=== PATIENT | female | born 1955 | race Caucasian/White ===

== ENCOUNTER 2021-08-07 08:32 | Outpatient (REF) | payer OTHER, SELFPAY ==
--- NOTE | ~2021-08-07 | US_ITS ---
EXAMINATION: ULTRASOUND EXTREMITY NONVASCULAR CLINICAL INFORMATION: Edema left antecubital fossa. Question bursitis. COMPARISON: None TECHNIQUE: Doppler color and grayscale evaluation of the left antecubital fossa using a linear transducer FINDINGS: No fluid collection or soft tissue mass is seen. The antecubital vein is patent. US/US extremity nonvascular IMPRESSION: Unremarkable exam.
== END 2021-08-07 08:33 | disposition home or self-care (01) ==
LOC: HO.HMGCX 08:32
PROVIDERS: Visit Provider Nurse Practitioner Gerontology
DX: R22.32 Localized swelling, mass and lump, left upper limb (principal)
CPT/HCPCS: 76882

== ENCOUNTER 2022-06-29 10:14 | Emergency (ER) | payer OTHER, SELFPAY ==
--- NOTE | ~2022-06-29 | CT_ITS ---
EXAMINATION: HEAD CT AND CERVICAL SPINE CT WITHOUT CONTRAST CLINICAL INFORMATION: Headache. Neck pain radiating to left side. COMPARISON: Previous head CT, most recent March 2019. TECHNIQUE: Axial images through the head and cervical spine without contrast. Sagittal and coronal reconstructions on the technologist workstation were performed. Patient dose: 1006 mGy-cm. FINDINGS: HEAD: There is no evidence of an extra-axial collection. There is no evidence of intra-axial or extra-axial hemorrhage. The ventricles and extra-axial CSF spaces are appropriate. Guerrero-white matter differentiation is normal. No mass, mass effect or infarct is seen. Review at bone windows is normal. No skull fracture. Visualized paranasal sinuses, mastoid air cells and middle ears are clear. CERVICAL SPINE: Bone alignment is normal. No fracture or dislocation is seen. There is degenerative spondylosis at C4-C5, C5-C6 and C6-C7 with large bulky bridging vertebral body bony osteophytes. There is degenerative disc disease at C5-C6 and C6-C7. There is bilateral multilevel facet arthritis. There are degenerative changes at the C1 dens articulation. Prevertebral soft tissues are normal. Visualized lung apices are clear. At C2-C3, no disc herniation, protrusion or bulge. Spinal canal and neural foramen are patent. At C3-C4, there is mild disc bony osteophyte complex and mild left lateral recess and neural foraminal narrowing from disc osteophyte complex and facet arthritis. At C3-C4, there is no disc herniation, protrusion or bulge. Spinal canal and neural foramen are patent. At C4-C5, there is no disc herniation, protrusion or bulge. Severe right-sided facet arthritis and right-sided lateral recess and neural foraminal narrowing from facet arthritis. At C5-C6, there is mild left paracentral disc bony osteophyte complex, left greater than right. There is mild left-sided neural foraminal narrowing from disc osteophyte complex. At C6-C7, there is disc bony osteophyte complex, moderate secondary spinal stenosis, bilateral lateral recess and neural foraminal narrowing. CT/CT cervical spine wo IV con IMPRESSION: HEAD CT: Unremarkable exam. CERVICAL SPINE CT: No fracture or dislocation. Multilevel degenerative changes, greatest at C5-C6.
[2022-06-29 11:09] VITALS: BP 143/79; PULSE 55; RESP 18; TEMP 36.8; O2SAT 98; BMI 26.6
--- NOTE | 2022-06-29 11:59 | ED.GENADULT ---
HPI - General Adult General Chief complaint: General Medical Stated complaint: pain in R side body Time Seen by Provider: 06/29/22 11:56 History of Present Illness HPI narrative: Patient complains of left neck pain left arm pain, intermittent tingling into the left hand but no weakness of the left arm or the left hand as well as some pain that sometimes shoots down her left leg She also complains of an occasional headache which centers around her left eye with no vision loss, no other associated symptoms, she has no headache now Related Data Allergies Allergy/AdvReac Type Severity Reaction Status Date / Time No Known Allergies Allergy Unverified 07/03/20 17:16 [No Known Allergies*] Review of Systems Review of Systems: Negatives are no fever no chills no dizziness no weakness no fainting no feeling faint no nausea no vomiting no confusion no seizures no numbness no weakness no tingling no changes to bowel or bladder no chest pain no abdominal pain no dysuria Yes all other systems are reviewed and are negative PMFSH Past Medical History Source: nursing notes reviewed Social History Social History Advance Directives: No Advance Directives Information Provided: No Physical Exam ED Vital Signs: Vital Signs - 24 hr 06/29/22 11:09 Temperature 98.3 F Pulse Rate 55 Respiratory Rate 18 Blood Pressure 143/79 H Pulse Oximetry 98 Oxygen Delivery Method Room Air BMI result Body Mass Index 26.6 General appearance is no acute distress Head is normocephalic atraumatic Pupils equal round reactive to light extraocular motions intact The ears are normal Pharynx is clear Neck is supple , but there is pain with lateral movement and there is tenderness to the left side of the neck Chest is clear to auscultation bilateral Respiratory no distress Chest clear to auscultation bilateral Heart no murmur Abdomen soft nontender The back had some left trapezius and upper back left-sided tenderness, there was also some mild left lower lumbar tenderness Extremities full range of motion x4 Neuro gait and balance are normal, motor is 5/5 x4, patient can walk on toes walk on heels community chest officer strength is symmetrical in 5/5 bilateral, sensation is intact and symmetrical, cerebellar exam is normal, interaction both comprehension expression are normal Course Course Course Narrative: CT of the cervical spine did show possible disc herniations and arthritis that could be the source of this pain, there was no mass seen no acute findings no fractures CT of the head was normal with no evidence of mass, no acute findings Well-appearing patient without neurologic deficit was discharged Discharge Plan Discharge Clinical Impression: Cervical radiculopathy, Headache Patient Disposition: Home, Self-Care Additional Instructions: The head CT today did not show any dangerous or concerning findings The CT of her neck showed arthritic and disc changes that certainly could be pressing on a nerve and causing pain Follow with primary doctor, you may need referral to a neurosurgeon or specialist to discuss a steroid injection or other treatment If the headaches continue again follow with primary doctor for referral to a headache specialist or neurologist Return any time for any change or worse condition, weakness of any limb, loss of sensation, loss of bladder or bowel control, severe pain out of control any worse condition or any concerns Interventions: ED Discharge Assessment Last Done: 06/29/22 15:56 Discharge Date/Time: 06/29/22 15:56
== END 2022-06-29 15:56 | disposition home or self-care (01) ==
PROVIDERS: Emergency Provider Emergency Medicine
DX: M54.12 Radiculopathy, cervical region (principal); R51.9 Headache, unspecified
CPT/HCPCS: 70450; 72125; 99282; 99284

== ENCOUNTER 2023-02-08 17:12 | Emergency (ER) | payer OTHER, SELFPAY ==
--- NOTE | ~2023-02-08 | CT_ITS ---
EXAMINATION: CT ABDOMEN AND PELVIS WITHOUT CONTRAST CLINICAL INFORMATION: Left flank pain COMPARISON: None available. TECHNIQUE: Multidetector volumetric imaging was performed from the superior aspect of the liver through the pubic symphysis. Sagittal and coronal reformatted images were obtained on the technologist's workstation. This CT examination was performed using dose optimization techniques as appropriate, variously including the following: *Automated exposure control *Adjustment of mA and/or kV according to patient size (this includes techniques or standardized protocols for targeted exams where dose is matched to indication/reason for exam; i.e. extremities or head) *Use of iterative reconstruction technique DLP: 540 mGy-cm FINDINGS: LUNG BASES: The visualized lung bases are unremarkable. LIVER, GALLBLADDER, AND BILIARY TREE: The liver is normal in size, shape, and attenuation. No focal hepatic lesion or biliary ductal dilatation is present. Stones in the gallbladder lumen. No wall thickening or adjacent inflammation. PANCREAS: Unremarkable. SPLEEN: Unremarkable. ADRENAL GLANDS: Unremarkable. KIDNEYS AND URETERS: The kidneys are normal in size, shape, and attenuation. Mild left caliectasis. Asymmetric left perinephric stranding. No hydroureter or obstructing calculus. There are at least 3 left lower pole renal calculi, with the largest measuring 0.6 cm, 11 cm from the posterior axillary line. This measures 784 Hounsfield units. There is a 0.2 cm right midpole renal calculus which is 8 cm from the posterior axillary line. BLADDER: Unremarkable. GASTROINTESTINAL TRACT: The stomach is unremarkable. Normal caliber small bowel. No obstruction. No colonic wall thickening or acute inflammation. No free air or free fluid. The appendix is not seen. ABDOMINAL WALL: No significant hernia is appreciated. LYMPH NODES: Normal. VASCULAR: Normal caliber aorta with mild atherosclerotic calcification. PELVIC VISCERA: The uterus and adnexa are unremarkable. OSSEOUS STRUCTURES: No acute or suspicious osseous abnormality. Degenerative changes of the hips and spine. CT/CT abdomen pelvis wo IV con IMPRESSION: 1. Mild left caliectasis with asymmetric left perinephric stranding. No hydroureter or obstructing calculus. This could be associated with a obstructing stone. Cannot exclude infection. 2. Nonobstructing bilateral renal calculi. 3. Cholelithiasis. Fleischner guidelines were followed.
[2023-02-08 18:24] VITALS: BP 164/92; PULSE 67; RESP 16; TEMP 37; O2SAT 97; BMI 27.8
--- NOTE | 2023-02-08 18:24 | ED.ABDPAIN ---
HPI - Abdominal Pain General Chief Complaint: Abdominal Pain Stated Complaint: sharp left hip pain Time Seen by Provider: 02/08/23 21:00 Related Data Previous Rx's Medication Instructions Recorded cefuroxime axetil 500 mg tablet 500 mg PO BID 10 days #20 tabs 02/09/23 cefuroxime axetil 500 mg tablet 500 mg PO BID 10 days #20 tabs 02/09/23 ondansetron 4 mg disintegrating 4 mg PO TID PRN nausea and 02/09/23 tablet vomiting 5 days #10 tabs ondansetron 4 mg disintegrating 4 mg PO TID PRN nausea and 02/09/23 tablet vomiting 5 days #10 tabs Allergies Allergy/AdvReac Type Severity Reaction Status Date / Time levofloxacin [From Levaquin] Allergy Unknown Verified 02/08/23 18:28 metronidazole [From Flagyl] Allergy Unknown Verified 02/08/23 18:28 sulfamethoxazole Allergy Unknown Verified 02/08/23 18:28 [From Bactrim] trimethoprim [From Bactrim] Allergy Unknown Verified 02/08/23 18:28 [facility] Social History Social History Alcohol intake: never Smoked in Last 30 Days: No Use of substances other than those prescribed or required for medical reasons: No Advance Directives: No Advance Directives Information Provided: No Physical Exam ED Vital Signs: BMI result Body Mass Index 27.8 Course Course Course Narrative: RME: 67yo F w/PMHx OA, ulcer, c/o sharp LLQ abdominal pain x this afternoon with assoc radiation to back and nausea/vomiting. denies fever, chills, diarrhea, dysuria/hematuria abdomen soft & nontender Labs, UA, ordered Full HPI, ROS and PE to be performed by primary ED provider. Medical Decision Making Lab Data 02/08/23 19:07 02/08/23 19:07 Labs: Lab Results 02/08/23 02/08/23 02/08/23 Range/Units 19:06 19:07 19:07 WBC 11.5 H (4.8-10.8) X10*3/uL RBC 4.30 (4.20-5.50) X10*6/uL Hgb 12.7 (12.0-16.0) g/dl Hct 37.7 (37.0-47.0) % MCV 87.7 (80.0-98.0) fL MCH 29.5 (27.0-33.0) pg MCHC 33.7 (31.0-35.0) g/dl RDW 12.6 (11.0-16.0) % Plt Count 194 (160-400) X10*3/uL MPV 10.9 (9.4-12.3) fL Immature Gran % (Auto) 0.3 (0.0-0.4) % Neut % (Auto) 87.4 H (45-73) % Lymph % (Auto) 6.3 L (20-40) % [place] % (Auto) 5.1 (2-11) % Eos % (Auto) 0.6 (0-4) % Baso % (Auto) 0.3 (0-2) % Lymph # (Auto) 0.7 L (1.2-4.9) X10*3/uL [place] # (Auto) 0.6 (0.1-1.2) X10*3/uL Eos # (Auto) 0.1 (0.0-0.4) X10*3/uL Baso # (Auto) 0.0 (0.0-0.2) X10*3/uL Abs Immat Gran (auto) 0.03 (0.00-0.03) X10*3/uL Absolute Neuts (auto) 10.1 H (2.0-8.3) x10*3/uL Absolute Nucleated RBC 0.000 (0.0-0.012) X10*3/uL Nucleated RBC % (auto) 0.0 (0.0-0.2) /100WBC Sodium 142 (135-145) mmol/L Potassium 4.4 (3.3-5.1) mmol/L Chloride 106 (96-108) mmol/L Carbon Dioxide 27 (22-29) mmol/L Anion Gap 13 (12-20) BUN 23 H (9-16) mg/dL Creatinine 0.89 (0.5-1.4) mg/dL Estim Creat Clear Calc 61.9 Estimated GFR > 60 Random Glucose 125 H (60-115) mg/dL Lactic Acid (0.5-2.0) mmol/L Calcium 9.9 (8.4-10.2) mg/dL Magnesium 1.9 (1.6-2.6) mg/dL Total Bilirubin 0.6 (0.0-1.0) mg/dL Direct Bilirubin 0.1 (0.0-0.5) mg/dL AST 36 H (5-31) U/L ALT 40 H (0-31) U/L Alkaline Phosphatase 116 (39-117) U/L Total Protein 7.4 (6.5-8.0) g/dL Albumin 4.7 (3.5-5.0) g/dL Lipase 36 (8-78) U/L Urine Color Yellow Urine Appearance Clear Urine pH 6.0 (5.0-9.0) Ur Specific [place] 1.015 (1.005-1.025) Urine Protein Negative (Neg-Trace) mg/dL Urine Glucose (UA) Negative (Negative) mg/dL Urine Ketones Negative (Negative) mg/dL Urine Blood Trace H (Negative) Urine Nitrite Negative (Negative) Ur Leukocyte Esterase Large (3+) H (Negative) Urine RBC 0-2 (0-2) /HPF Urine WBC 21-50 H (0-5) /HPF Ur Squamous Epith Cells 3-5 (0-2) /HPF Urine Bacteria None Seen (None Seen) Hyaline Casts 0-2 (0-2) /LPF 02/08/23 Range/Units 22:49 WBC (4.8-10.8) X10*3/uL RBC (4.20-5.50) X10*6/uL Hgb (12.0-16.0) g/dl Hct (37.0-47.0) % MCV (80.0-98.0) fL MCH (27.0-33.0) pg MCHC (31.0-35.0) g/dl RDW (11.0-16.0) % Plt Count (160-400) X10*3/uL MPV (9.4-12.3) fL Immature Gran % (Auto) (0.0-0.4) % Neut % (Auto) (45-73) % Lymph % (Auto) (20-40) % [place] % (Auto) (2-11) % Eos % (Auto) (0-4) % Baso % (Auto) (0-2) % Lymph # (Auto) (1.2-4.9) X10*3/uL [place] # (Auto) (0.1-1.2) X10*3/uL Eos # (Auto) (0.0-0.4) X10*3/uL Baso # (Auto) (0.0-0.2) X10*3/uL Abs Immat Gran (auto) (0.00-0.03) X10*3/uL Absolute Neuts (auto) (2.0-8.3) x10*3/uL Absolute Nucleated RBC (0.0-0.012) X10*3/uL Nucleated RBC % (auto) (0.0-0.2) /100WBC Sodium (135-145) mmol/L Potassium (3.3-5.1) mmol/L Chloride (96-108) mmol/L Carbon Dioxide (22-29) mmol/L Anion Gap (12-20) BUN (9-16) mg/dL Creatinine (0.5-1.4) mg/dL Estim Creat Clear Calc Estimated GFR Random Glucose (60-115) mg/dL Lactic Acid 1.2 (0.5-2.0) mmol/L Calcium (8.4-10.2) mg/dL Magnesium (1.6-2.6) mg/dL Total Bilirubin (0.0-1.0) mg/dL Direct Bilirubin (0.0-0.5) mg/dL AST (5-31) U/L ALT (0-31) U/L Alkaline Phosphatase (39-117) U/L Total Protein (6.5-8.0) g/dL Albumin (3.5-5.0) g/dL Lipase (8-78) U/L Urine Color Urine Appearance Urine pH (5.0-9.0) Ur Specific [place] (1.005-1.025) Urine Protein (Neg-Trace) mg/dL Urine Glucose (UA) (Negative) mg/dL Urine Ketones (Negative) mg/dL Urine Blood (Negative) Urine Nitrite (Negative) Ur Leukocyte Esterase (Negative) Urine RBC (0-2) /HPF Urine WBC (0-5) /HPF Ur Squamous Epith Cells (0-2) /HPF Urine Bacteria (None Seen) Hyaline Casts (0-2) /LPF Medications Administered Discontinued Medications Generic Name Dose Route Start Last Admin Trade Name Freq PRN Reason Stop Dose Admin Sodium Chloride 1,000 mls @ 999 mls/hr 02/08/23 22:15 02/09/23 00:04 Ns IV 02/08/23 23:15 Infused .Q1H1M CANDELARIO Infusion Ceftriaxone Sodium 1 gm/ 50 mls @ 100 mls/hr 02/08/23 22:04 02/09/23 00:01 Sodium Chloride IV 02/08/23 22:33 Infused ONCE ONE Infusion Ketorolac Tromethamine 30 mg 02/08/23 22:02 02/08/23 22:50 Ketorolac Tromethamine 30 Mg/Ml Vial IVPUSH 02/08/23 22:03 30 mg ONCE ONE Administration Ondansetron HCl 4 mg 02/08/23 22:02 02/08/23 22:50 Ondansetron Hcl 4 Mg/2 Ml Vial IVPUSH 02/08/23 22:03 4 mg ONCE ONE Administration Discharge Plan Discharge Clinical Impression: Urinary tract infection Patient Disposition: Home, Self-Care Instructions: Urinary Tract Infection in Older Adults (ED) Prescriptions: New ondansetron 4 mg tablet,disintegrating 4 mg PO TID PRN (Reason: nausea and vomiting) 5 Days Qty: 10 0RF cefuroxime axetil 500 mg tablet 500 mg PO BID 10 Days Qty: 20 0RF ondansetron 4 mg tablet,disintegrating 4 mg PO TID PRN (Reason: nausea and vomiting) 5 Days Qty: 10 0RF cefuroxime axetil 500 mg tablet 500 mg PO BID 10 Days Qty: 20 0RF Referrals: Goran Casas MD [Physician] - 02/11/23 Physician,Unknown J [Primary Care Provider] - Interventions: ED Discharge Assessment Last Done: 02/09/23 01:31 Discharge Date/Time: 02/09/23 01:32
[2023-02-08 19:11] LABS: MANUAL DIFF FLAG NO
[2023-02-08 19:14] LABS: Basophils Percent Auto 0.3 % (0-2); Eosinophils Absolute Auto 0.1 X10*3/uL (0.0-0.4); Eosinophils Percent Auto 0.6 % (0-4); Hematocrit 37.7 % (37.0-47.0); Hemoglobin 12.7 g/dl (12.0-16.0); Imm Gran Abs Auto 0.03 X10*3/uL (0.00-0.03); Imm Gran Pct Auto 0.3 % (0.0-0.4); Lymphocytes Absolute Auto 0.7 X10*3/uL (1.2-4.9); Lymphocytes Percent Auto 6.3 % (20-40); Mean Corpuscular HGB Conc 33.7 g/dl (31.0-35.0); Mean Corpuscular Hemoglobin 29.5 pg (27.0-33.0); Mean Corpuscular Volume 87.7 fL (80.0-98.0); Mean Platelet Volume 10.9 fL (9.4-12.3); Monocytes Absolute Auto 0.6 X10*3/uL (0.1-1.2); Monocytes Percent Auto 5.1 % (2-11); Neutrophils Absolute Auto 10.1 x10*3/uL (2.0-8.3); Neutrophils Percent Auto 87.4 % (45-73); Platelet Count 194 X10*3/uL (160-400); Red Cell Distribution Width 12.6 % (11.0-16.0); White Blood Count 11.5 X10*3/uL (4.8-10.8)
[2023-02-08 19:17] LABS: Appearance Urine Clear; Color Urine Yellow; Glucose Urine UA Negative (Negative); Leukocyte Esterase Urine Large (3+) (Negative); Nitrite Urine Negative (Negative); Specific Gravity - Urine 1.015 (1.005-1.025); UMIC TRIGGER UACC YES; Urine Blood Trace (Negative); Urine Ketones Negative (Negative); Urine Protein Negative (Neg-Trace)
[2023-02-08 19:19] LABS: Bacteria Urine None Seen (None Seen); Hyaline Casts Urine 0-2 /LPF (0-2); RBC Urine 0-2 /HPF (0-2); UACC Culture Trigger YES; WBC Urine 21-50 /HPF (0-5)
[2023-02-08 19:36] LABS: Alanine Aminotransferase 40 U/L (0-31); Albumin Level 4.7 g/dL (3.5-5.0); Alkaline Phosphatase 116 U/L (39-117); Anion Gap 13 (12-20); Aspartate Amino Transferase 36 U/L (5-31); Bilirubin Direct 0.1 mg/dL (0.0-0.5); Bilirubin Total 0.6 mg/dL (0.0-1.0); Blood Urea Nitrogen 23 mg/dL (9-16); Calcium 9.9 mg/dL (8.4-10.2); Carbon Dioxide 27 mmol/L (22-29); Chloride 106 mmol/L (96-108); Creatinine Clr Calc Pharmacy 61.9; Estimated Glomerular Filt Rate > 60; Glucose Random 125 mg/dL (60-115); Lipase 36 U/L (8-78); Magnesium 1.9 mg/dL (1.6-2.6); Potassium 4.4 mmol/L (3.3-5.1); Sodium 142 mmol/L (135-145); Total Protein 7.4 g/dL (6.5-8.0)
--- NOTE | 2023-02-08 22:08 | ED_ITS ---
HPI - Abdominal Pain General Chief Complaint: Abdominal Pain Stated Complaint: sharp left hip pain Time Seen by Provider: 02/08/23 21:00 History of Present Illness HPI narrative: Patient is a 67-year-old female presents today with having abdominal pain mainly over the left upper quadrant left flank area. Denies any radiation. Denies any fever. Positive mild nausea. Positive vomiting earlier today. No history of abdominal surgery. No coughing or congestion upper respiratory symptoms. Patient is from home. No vaginal discharge. Related Data Previous Rx's Medication Instructions Recorded cefuroxime axetil 500 mg tablet 500 mg PO BID 10 days #20 tabs 02/09/23 ondansetron 4 mg disintegrating 4 mg PO TID PRN nausea and 02/09/23 tablet vomiting 5 days #10 tabs Allergies Allergy/AdvReac Type Severity Reaction Status Date / Time levofloxacin [From Levaquin] Allergy Unknown Verified 02/08/23 18:28 metronidazole [From Flagyl] Allergy Unknown Verified 02/08/23 18:28 sulfamethoxazole Allergy Unknown Verified 02/08/23 18:28 [From Bactrim] trimethoprim [From Bactrim] Allergy Unknown Verified 02/08/23 18:28 Review of Systems Review of Systems Positive left-sided abdominal pain Yes all other systems are reviewed and are negative [facility] Past Medical History Attestation statement: The following information was validated with the patient. Social History Social History Alcohol intake: never Smoked in Last 30 Days: No Use of substances other than those prescribed or required for medical reasons: No Advance Directives: No Advance Directives Information Provided: No Physical Exam ED Vital Signs: Vital Signs - 24 hr 02/08/23 18:24 02/08/23 22:59 02/08/23 23:57 Temperature 98.6 F 98.8 F 97.8 F Pulse Rate 67 88 65 Respiratory Rate 16 16 18 Blood Pressure 164/92 H 135/78 136/72 Pulse Oximetry 97 99 96 Oxygen Delivery Method Room Air Room Air Room Air BMI result Body Mass Index 27.8 Appearance: Alert. Oriented X3. No acute distress. Eyes: Pupils equal, round and reactive to light. ENT: Pharynx normal. Neck: Normal inspection. Neck supple. No lymph nodes noted. No crepitus CVS: Normal heart rate and rhythm. Pulses normal. Normal S1 and S2 Respiratory: No respiratory distress. Breath sounds normal. No Wheezing. No rales Abdomen: Soft and nontender. No rigidity. No distention. good BS x4 Skin: Skin warm and dry. Normal skin color. Normal skin turgor. Extremities: No lower extremity edema. Neurovascular intact to all extremities. No Lacerations. No Rash Neuro: Oriented X 3. No motor deficit. No sensory deficit. Moving all extermities. No slurred speech Medical Decision Making Medical Decision Making [facility] Narrative: Patient presented today with having left-sided abdominal pain. AST and ALT was minimally elevated more likely secondary to fatty liver. Patient's lipase was normal. There is no evidence for pancreatitis. Patient's urine has 3+ leukocyte esterase. Question UTI versus pyelo. The white count was 11 her kidney function was normal a dose of Rocephin was given as patient has many allergies. Including quinolone, Flagyl, Bactrim. CT scan of the abdomen was done there is no evidence of obstruction abscess perforation there is no kidney stones. No evidence for pancreatitis no evidence for diverticulitis no evidence for appendicitis. Will discharge patient home on additional Keflex. Patient's previous culture was reviewed. In stable condition with discharge Lab Data [facility] Lab Attestation statement: I reviewed the patient's lab results. 02/08/23 19:07 02/08/23 19:07 Labs: Lab Results 02/08/23 02/08/23 02/08/23 Range/Units 19:06 19:07 19:07 WBC 11.5 H (4.8-10.8) X10*3/uL RBC 4.30 (4.20-5.50) X10*6/uL Hgb 12.7 (12.0-16.0) g/dl Hct 37.7 (37.0-47.0) % MCV 87.7 (80.0-98.0) fL MCH 29.5 (27.0-33.0) pg MCHC 33.7 (31.0-35.0) g/dl RDW 12.6 (11.0-16.0) % Plt Count 194 (160-400) X10*3/uL MPV 10.9 (9.4-12.3) fL Immature Gran % (Auto) 0.3 (0.0-0.4) % Neut % (Auto) 87.4 H (45-73) % Lymph % (Auto) 6.3 L (20-40) % [place] % (Auto) 5.1 (2-11) % Eos % (Auto) 0.6 (0-4) % Baso % (Auto) 0.3 (0-2) % Lymph # (Auto) 0.7 L (1.2-4.9) X10*3/uL [place] # (Auto) 0.6 (0.1-1.2) X10*3/uL Eos # (Auto) 0.1 (0.0-0.4) X10*3/uL Baso # (Auto) 0.0 (0.0-0.2) X10*3/uL Abs Immat Gran (auto) 0.03 (0.00-0.03) X10*3/uL Absolute Neuts (auto) 10.1 H (2.0-8.3) x10*3/uL Absolute Nucleated RBC 0.000 (0.0-0.012) X10*3/uL Nucleated RBC % (auto) 0.0 (0.0-0.2) /100WBC Sodium 142 (135-145) mmol/L Potassium 4.4 (3.3-5.1) mmol/L Chloride 106 (96-108) mmol/L Carbon Dioxide 27 (22-29) mmol/L Anion Gap 13 (12-20) BUN 23 H (9-16) mg/dL Creatinine 0.89 (0.5-1.4) mg/dL Estim Creat Clear Calc 61.9 Estimated GFR > 60 Random Glucose 125 H (60-115) mg/dL Lactic Acid (0.5-2.0) mmol/L Calcium 9.9 (8.4-10.2) mg/dL Magnesium 1.9 (1.6-2.6) mg/dL Total Bilirubin 0.6 (0.0-1.0) mg/dL Direct Bilirubin 0.1 (0.0-0.5) mg/dL AST 36 H (5-31) U/L ALT 40 H (0-31) U/L Alkaline Phosphatase 116 (39-117) U/L Total Protein 7.4 (6.5-8.0) g/dL Albumin 4.7 (3.5-5.0) g/dL Lipase 36 (8-78) U/L Urine Color Yellow Urine Appearance Clear Urine pH 6.0 (5.0-9.0) Ur Specific [place] 1.015 (1.005-1.025) Urine Protein Negative (Neg-Trace) mg/dL Urine Glucose (UA) Negative (Negative) mg/dL Urine Ketones Negative (Negative) mg/dL Urine Blood Trace H (Negative) Urine Nitrite Negative (Negative) Ur Leukocyte Esterase Large (3+) H (Negative) Urine RBC 0-2 (0-2) /HPF Urine WBC 21-50 H (0-5) /HPF Ur Squamous Epith Cells 3-5 (0-2) /HPF Urine Bacteria None Seen (None Seen) Hyaline Casts 0-2 (0-2) /LPF 02/08/23 Range/Units 22:49 WBC (4.8-10.8) X10*3/uL RBC (4.20-5.50) X10*6/uL Hgb (12.0-16.0) g/dl Hct (37.0-47.0) % MCV (80.0-98.0) fL MCH (27.0-33.0) pg MCHC (31.0-35.0) g/dl RDW (11.0-16.0) % Plt Count (160-400) X10*3/uL MPV (9.4-12.3) fL Immature Gran % (Auto) (0.0-0.4) % Neut % (Auto) (45-73) % Lymph % (Auto) (20-40) % [place] % (Auto) (2-11) % Eos % (Auto) (0-4) % Baso % (Auto) (0-2) % Lymph # (Auto) (1.2-4.9) X10*3/uL [place] # (Auto) (0.1-1.2) X10*3/uL Eos # (Auto) (0.0-0.4) X10*3/uL Baso # (Auto) (0.0-0.2) X10*3/uL Abs Immat Gran (auto) (0.00-0.03) X10*3/uL Absolute Neuts (auto) (2.0-8.3) x10*3/uL Absolute Nucleated RBC (0.0-0.012) X10*3/uL Nucleated RBC % (auto) (0.0-0.2) /100WBC Sodium (135-145) mmol/L Potassium (3.3-5.1) mmol/L Chloride (96-108) mmol/L Carbon Dioxide (22-29) mmol/L Anion Gap (12-20) BUN (9-16) mg/dL Creatinine (0.5-1.4) mg/dL Estim Creat Clear Calc Estimated GFR Random Glucose (60-115) mg/dL Lactic Acid 1.2 (0.5-2.0) mmol/L Calcium (8.4-10.2) mg/dL Magnesium (1.6-2.6) mg/dL Total Bilirubin (0.0-1.0) mg/dL Direct Bilirubin (0.0-0.5) mg/dL AST (5-31) U/L ALT (0-31) U/L Alkaline Phosphatase (39-117) U/L Total Protein (6.5-8.0) g/dL Albumin (3.5-5.0) g/dL Lipase (8-78) U/L Urine Color Urine Appearance Urine pH (5.0-9.0) Ur Specific [place] (1.005-1.025) Urine Protein (Neg-Trace) mg/dL Urine Glucose (UA) (Negative) mg/dL Urine Ketones (Negative) mg/dL Urine Blood (Negative) Urine Nitrite (Negative) Ur Leukocyte Esterase (Negative) Urine RBC (0-2) /HPF Urine WBC (0-5) /HPF Ur Squamous Epith Cells (0-2) /HPF Urine Bacteria (None Seen) Hyaline Casts (0-2) /LPF Independent Interpretation I performed an independent interpretation of an: CT Scan Interpretation: CT scan showed no obstruction or abscess Radiology Impression Discussion of test interpretation with radiology: I have reviewed the radiologist's reading. Medications Administered Discontinued Medications Generic Name Dose Route Start Last Admin Trade Name Freq PRN Reason Stop Dose Admin Sodium Chloride 1,000 mls @ 999 mls/hr 02/08/23 22:15 02/09/23 00:04 Ns IV 02/08/23 23:15 Infused .Q1H1M CANDELARIO Infusion Ceftriaxone Sodium 1 gm/ 50 mls @ 100 mls/hr 02/08/23 22:04 02/09/23 00:01 Sodium Chloride IV 02/08/23 22:33 Infused ONCE ONE Infusion Ketorolac Tromethamine 30 mg 02/08/23 22:02 02/08/23 22:50 Ketorolac Tromethamine 30 Mg/Ml Vial IVPUSH 02/08/23 22:03 30 mg ONCE ONE Administration Ondansetron HCl 4 mg 02/08/23 22:02 02/08/23 22:50 Ondansetron Hcl 4 Mg/2 Ml Vial IVPUSH 02/08/23 22:03 4 mg ONCE ONE Administration Discharge Plan Discharge Clinical Impression: Urinary tract infection Patient Disposition: Home, Self-Care Instructions: Urinary Tract Infection in Older Adults (ED) Prescriptions: New ondansetron 4 mg tablet,disintegrating 4 mg PO TID PRN (Reason: nausea and vomiting) 5 Days Qty: 10 0RF cefuroxime axetil 500 mg tablet 500 mg PO BID 10 Days Qty: 20 0RF Referrals: Goran Casas MD [Physician] - 02/11/23 Physician,Lavern J [Primary Care Provider] -
[2023-02-08] MEDS: cefTRIAXone sodium 1 GM in 0.9 % Sodium Chloride 50 ML IV (22:50)
[2023-02-08] MEDS: Ketorolac Tromethamine 30 MG/ML VIAL IVPUSH (22:50)
[2023-02-08] MEDS: ondansetron HCL 4 MG/2 ML VIAL IVPUSH (22:50)
[2023-02-08] MEDS: 0.9 % Sodium Chloride 1,000 ML 999 ML IV (22:51)
[2023-02-08 22:59] VITALS: BP 135/78; PULSE 88; RESP 16; TEMP 37.1; O2SAT 99
[2023-02-08 23:08] LABS: Lactic Acid 1.2 mmol/L (0.5-2.0)
[2023-02-08 23:57] VITALS: BP 136/72; PULSE 65; RESP 18; TEMP 36.6; O2SAT 96
--- NOTE | 2023-02-08 23:58 | MHC.EDTECH ---
This tech assumed care of patient at 2300,Vitals taken and labs obtained. Patient is resting comfortable at this time. Call arce in reach
== END 2023-02-09 01:32 | disposition home or self-care (01) ==
PROVIDERS: Physician Assistant; Emergency Provider Emergency Medicine Emergency Medical Services
DX: N39.0 Urinary tract infection, site not specified (principal); R10.2 Pelvic and perineal pain; M25.552 Pain in left hip; Z79.899 Other long term (current) drug therapy
CPT/HCPCS: 36415; 74176; 80048; 80076; 81001; 83605; 83690; 83735; 85025; 87040; 87086; 87088; 87186; 96361; 96365; 96374; 96375; 99285; J0696; J1885; J2405

== ENCOUNTER 2023-02-24 15:00 | Outpatient (REF) | payer OTHER, SELFPAY ==
[2023-02-24 16:50] LABS: Urine Cytology See Pathology rpt
== END 2023-02-24 15:01 | disposition home or self-care (01) ==
LOC: HO.LNP 15:00
PROVIDERS: PCP Internal Medicine; Visit Provider Nurse Practitioner Family
DX: N39.0 Urinary tract infection, site not specified (principal); N20.0 Calculus of kidney
CPT/HCPCS: 51798; 88112; 99202

== ENCOUNTER 2023-03-07 16:11 | Outpatient (REF) | payer OTHER, SELFPAY ==
--- NOTE | ~2023-03-07 | US_ITS ---
EXAMINATION: US RETROPERITONEAL COMPLETE (RENAL) CLINICAL INFORMATION: Urinary tract infection, site not specified. COMPARISON: CT abdomen and pelvis 02/08/2023. TECHNIQUE: Real-time imaging of the kidneys and bladder. FINDINGS: RIGHT KIDNEY: 11.9 x 4.2 x 4.6 cm (SAG x AP x TRV). The kidney is normal in size, contour, and echogenicity. Renal cortical thickness is normal. No focal parenchymal lesions or hydronephrosis. There are 2 echogenic stones. An upper pole stone measuring 0.3 x 0.2 x 0.4 cm and a midpole stone measuring 0.3 x 0.3 x 0.3 cm. There is no focal caliectasis or hydronephrosis. LEFT KIDNEY: 11.0 x 4.9 x 4.9 cm (SAG x AP x TRV). The kidney is normal in size, contour, and echogenicity. Renal cortical thickness is normal. No focal parenchymal lesions or hydronephrosis. There are echogenic stones in the lower pole measuring 0.3 x 0.3 x 0.4 cm, 0.9 x 0.6 x 0.5 cm, and 0.6 x 0.4 x 0.6 cm. There is no caliectasis. BLADDER: Well distended and normal. Bilateral ureteral jets are demonstrated. Prevoid bladder volume is 585 mL. Postvoid bladder volume is 56.0 mL. US/US retroperitoneal comp IMPRESSION: Bilateral nonobstructive echogenic renal calculi. No hydronephrosis.
== END 2023-03-07 16:12 | disposition home or self-care (01) ==
LOC: HO.US 16:11
PROVIDERS: PCP Internal Medicine; Visit Provider Nurse Practitioner Family
DX: N39.0 Urinary tract infection, site not specified (principal); N20.0 Calculus of kidney
CPT/HCPCS: 76770